=== PATIENT | female | born 1985 | race Hispanic/Latino ===

== ENCOUNTER 2019-03-20 04:10 | Observation (INO) | payer BC ==
[~2019-03-20] VITALS: Ht 160 cm; Wt 56.7 kg
[2019-03-20] MEDS ORDERED: ONDANSETRON HCL INJ 2MG/ML 2ML 2 MG/ML VIAL IV STA (04:31)
[2019-03-20] MEDS ORDERED: FAMOTIDINE 20 MG/2 ML VIAL IV STA (04:31)
[2019-03-20] MEDS ORDERED: DICYCLOMINE HCL 20 MG/2 ML VIAL IM ONE (04:45)
[2019-03-20] MEDS ORDERED: SODIUM CHLORIDE 0.9% 1000ML 1,000 ML IV ONE ×2 (04:45→05:45)
[2019-03-20 04:50] LABS: BASOPHILS % 0.5 % (0.0-1.0); EOSINOPHILS # (AUTO) 0.2 (0.0-0.4); EOSINOPHILS % 2.3 % (0.0-6.0); HEMATOCRIT 37.9 % (34.2-44.1); HEMOGLOBIN 13.2 g/dL (12.0-16.0); LYMPHOCYTES # (AUTO) 2.6 (1.0-3.2); LYMPHOCYTES % 39.4 % (18.0-39.1); MEAN CORPUSCULAR HEMOGLOBIN 31.5 pg (28-32); MEAN CORPUSCULAR HGB CONC 34.8 g/dL (31-35); MEAN CORPUSCULAR VOLUME 90.5 fL (81-99); MONOCYTES # (AUTO) 0.6 (0.2-0.8); MONOCYTES % 9.1 % (4.4-11.3); NEUTROPHILS # (AUTO) 3.2 (2.1-6.9); NEUTROPHILS % 48.5 % (38.7-80.0); PLATELET COUNT 317 x10e3/uL (140-360); RED BLOOD COUNT 4.19 x10e6/uL (3.6-5.1); RED CELL DISTRIBUTION WIDTH 13.8 % (11.7-14.4)
[2019-03-20 05:08] LABS: ALANINE AMINOTRANSFERASE 22 IU/L (0-55); ALBUMIN 4.5 g/dL (3.5-5.0); ALBUMIN/GLOBULIN RATIO 1.5 (0.8-2.0); ALKALINE PHOSPHATASE 50 IU/L (40-150); AMYLASE 87 U/L (25-125); ANION GAP 13.3 mmol/L (8-16); BLOOD UREA NITROGEN 12 mg/dL (7-26); BUN/CREATININE RATIO 14 (6-25); CALCIUM 9.5 mg/dL (8.4-10.2); CARBON DIOXIDE 25 mmol/L (22-29); CHLORIDE 106 mmol/L (98-107); CREATININE, SERUM 0.87 mg/dL (0.57-1.11); EST GLOMERULAR FILTRATION RATE > 60 ML/MIN (60-); GLUCOSE 103 mg/dL (74-118); LIPASE 110 U/L (8-78); POTASSIUM 3.3 mmol/L (3.5-5.1); SODIUM 141 mmol/L (136-145)
[2019-03-20 05:10] LABS: BILIRUBIN,URINE NEGATIVE (NEGATIVE); CLARITY,URINE CLEAR (CLEAR); COLOR,URINE YELLOW (YELLOW); KETONES,URINE NEGATIVE (NEGATIVE); LEUKOCYTE ESTERASE ,URINE NEGATIVE (NEGATIVE); NITRITE,URINE NEGATIVE (NEGATIVE); PROTEIN,URINE DIPSTICK TRACE (NEGATIVE); URINE UROBILINOGEN 1 mg/dL (0.2 - 1)
[2019-03-20 05:14] LABS: PREGNANCY TEST, URINE NEGATIVE (NEGATIVE)
[2019-03-20 05:22] LABS: WBC,URINE (MAN) 0-5 /HPF (0-5)
[2019-03-20 05:23] LABS: BACTERIA,URINE RARE /HPF; EPITHELIAL CELLS,URINE FEW /LPF
[2019-03-20] MEDS ORDERED: POTASSIUM CHLORIDE 20 MEQ TAB CR PO STA (05:43)
[2019-03-20] MEDS ORDERED: SODIUM CHLORIDE 0.9% 50ML 50 ML ONE (06:33)
[2019-03-20] MEDS ORDERED: IOPAMIDOL 370 MG/ML 200 ML INFUS..BTL INJ ONE (06:33)
[2019-03-20] MEDS ORDERED: MORPHINE SULFATE INJ 4 MG/ML INJ 1ML IV PRN (07:00)
--- NOTE | 2019-03-20 07:02 | NUR ---
report given to neelam ajcome
--- NOTE | 2019-03-20 07:05 | Diagnostic Imaging Report ---
EXAMINATION: CT of the abdomen and pelvis with contrast. TECHNIQUE: Helical CT images of the abdomen and pelvis were performed from the lung bases to the lesser trochanters after the intravenous administration of 100 cc of Isovue 300 and the oral administration of none. Coronal and sagittal reformatted images were obtained.Dose modulation, iterative reconstruction, and/or weight based adjustment of the mA/kV was utilized to reduce the radiation dose to as low as reasonably achievable. COMPARISON: None. CLINICAL HISTORY:Abdominal pain DISCUSSION: ABDOMEN/PELVIS: LOWER THORAX:Unremarkable. HEPATOBILIARY: No focal hepatic lesions. No intra-or extrahepatic biliary ductal dilation. The gallbladder is normal. SPLEEN: No splenomegaly. PANCREAS: No focal masses or ductal dilatation. ADRENALS: No adrenal nodules. KIDNEYS/URETERS: Punctate left renal calculus approximately 2 mm. PELVIC ORGANS/BLADDER: The bladder is normal. PERITONEUM/RETROPERITONEUM: No free air or fluid. LYMPH NODES: No intra-abdominal, retroperitoneal, pelvic or inguinal lymphadenopathy. VESSELS: The celiac trunk,superior and inferior mesenteric and bilateral renal arteries are patent The portal, superior mesenteric and splenic veins are patent. GI TRACT: No obstruction. Scattered diverticulosis. No inflammatory change. Appendix is normal. BONES AND SOFT TISSUE: No bony destructive lesions. No soft tissue abnormalities. IMPRESSION: No acute CT finding. Signed by: Dr. Good Oneil M.D. on 03/20/2019 7:02 AM
--- NOTE | 2019-03-20 07:09 | NUR ---
recieved report from NELSY Padilla
[2019-03-20] MEDS: SODIUM CHLORIDE 0.9% 1000ML 1,000 ML IV SCH ×4 (07:10→23:57)
--- NOTE | 2019-03-20 07:19 | NUR ---
DR WEBB AT BEDSIDE WITH PT
--- NOTE | 2019-03-20 08:20 | NUR ---
Patient arrived to the floor from the ER in bed. She is awake alert and oriented x3, she is not in any distress. She has no complaints at this time. Oriented her to the call light and the room, explained to use call light for assistance, she verbalized understanding and denies needing anything at this time, call light in reach
[2019-03-20] MEDS: FAMOTIDINE 20 MG/2 ML VIAL IV SCH ×2 (09:00→16:40)
--- NOTE | 2019-03-20 10:52 | Diagnostic Imaging Report ---
EXAM: Right Upper Quadrant Ultrasound INDICATION: Elevated lipase and bilirubin COMPARISON: CT abdomen and pelvis 03/20/2019 TECHNIQUE: Transverse and longitudinal images of the right upper abdomen were obtained. FINDINGS: Liver: Size: 12.6 cm in the right midclavicular line, normal Appearance: Normal echogenicity, smooth contour Mass: No focal masses Gallbladder: Stones/Sludge: None Wall: 0.3 cm Appearance: No pericholecystic fluid or hydrops. Sonographic Shi's Sign: Negative Bile Ducts: Intrahepatic Ducts: No dilatation Extrahepatic Ducts: Common bile duct measures 0.4 cm, no dilatation Pancreas: Visualized portions of the pancreatic head, neck and proximal body are normal. Right Kidney: Size: 10.8 x 4.7 x 5.8 cm Echogenicity: Normal Parenchymal thickness: Normal Collecting system: No hydronephrosis Stones: None Cyst/Mass: None Vessels: Aorta: Visualized portions are normal Inferior Vena Cava: Visualized portions are normal Main Portal Vein: 1.0 cm, normal size with hepatopetal flow. Free Fluid: No ascites or pleural effusion IMPRESSION: Normal right upper quadrant ultrasound. Signed by: Dr. Danilo King M.D. on 03/20/2019 10:49 AM
[2019-03-20 11:09] VITALS: BP 116/71
[2019-03-20] MEDS: ONDANSETRON HCL INJ 2MG/ML 2ML 2 MG/ML VIAL IV PRN (11:32)
--- NOTE | 2019-03-20 13:50 | History and Physical ---
REASON FOR ADMISSION: Abdominal pain, pancreatitis, hyperbilirubinemia, hypokalemia, and dehydration. HISTORY OF PRESENT ILLNESS: The patient is a 33-year-old young lady who stated that she did not sleep for couple of days and then decided to abdominal area with some diarrhea and therefore presented to the emergency room where she was noticed to have some mild evidence of dehydration and elevated lipase. Most likely, consistent with mild pancreatitis and hypokalemia so she has been admitted for further evaluation and treatment. PAST MEDICAL HISTORY: Unremarkable. MEDICATIONS: None. ALLERGIES: NONE. SOCIAL HISTORY: Nonsmoker. Occasional drinker. FAMILY HISTORY: Hypertension. PHYSICAL EXAMINATION: VITAL SIGNS: Temperature 98.6, pulse 74, blood pressure 126/74, and sats 98% on room air. GENERAL: She is in no apparent distress, lying in bed. NECK: Supple. CARDIOVASCULAR: Regular rate and rhythm. LUNGS: Clear to auscultation bilaterally. ABDOMEN: Soft. Good bowel sounds. Slightly tender in the mid epigastric area with no peritoneal signs. EXTREMITIES: No clubbing or cyanosis. NEUROLOGIC: Nonfocal. ASSESSMENT AND PLAN: 1. Pancreatitis. We will continue with current care and get a CT scan. Continue with IV fluids and pain medicines. 2. Hypokalemia. We will replace. 3. Dehydration. Continue with IV fluids. 4. Hyperbilirubinemia. We will check a CT scan and also consult GI. Please see hospital chart for full details. MD BRIONNA Smalls/NOBLE /[id number]
[2019-03-20 16:00] VITALS: BP 99/50
--- NOTE | 2019-03-20 19:04 | NUR ---
PATIENT IN BED ALERT AND ORIENTED X3, NO RESPIRATORY DISTRESS OBSERVED. SKIN INTEGRITY INTACT, NO EDEMA NOTED TO THE EXTREMITIES AND PATIENT DENIES ABDOMINAL PAIN AT THIS TIME. CALL LIGHT WITHIN EASY REACH, FAMILY MEMBERS VISITING WITH THE PATIENT, SHE'S INSTRUCTED TO CALL FOR ASSISTANCE NEEDED.
[2019-03-20 20:00] VITALS: BP 87/52
--- NOTE | 2019-03-20 20:01 | NUR ---
BLOOD PRESSURE 87/52, HEART RATE 48. PATIENT CONDITION STABLE WITHOUT DISTRESS, SHE DENIES LIGHTHEADEDNESS BUT HAVE SOME DIZZINESS. SHE'S RECEIVING IV FLUID AT 200ML/HR, INSTRUCTED TO CALL FOR ASSISTANCE UPON GETTING OUT OF THE BED DUE TO THE LOW BLOOD PRESSURE AND HEART RATE. WILL CONTINUE TO CLOSELY MONITOR.
[2019-03-20 20:20] VITALS: BP 87/52
--- NOTE | 2019-03-20 22:15 | NUR ---
PATIENT IS ASLEEP WITHOUT DISTRESS, SHE'S EASY TO AROUSE. NO PAIN VOICED, CALL LIGHT WITHIN EASY REACH.
[2019-03-21] VITALS: BP 95/52
--- NOTE | 2019-03-21 01:25 | NUR ---
PATIENT IS SOUNDLY ASLEEP, SHE'S EASY TO AROUSE. NO DISTRESS OBSERVED, SHE DENIES ABDOMINAL PAIN.
[2019-03-21 05:12] LABS: BASOPHILS % 0.6 % (0.0-1.0); EOSINOPHILS # (AUTO) 0.1 (0.0-0.4); EOSINOPHILS % 2.6 % (0.0-6.0); HEMATOCRIT 31.3 % (34.2-44.1); HEMOGLOBIN 10.7 g/dL (12.0-16.0); LYMPHOCYTES # (AUTO) 2.8 (1.0-3.2); LYMPHOCYTES % 51.4 % (18.0-39.1); MEAN CORPUSCULAR HEMOGLOBIN 31.4 pg (28-32); MEAN CORPUSCULAR HGB CONC 34.2 g/dL (31-35); MEAN CORPUSCULAR VOLUME 91.8 fL (81-99); MONOCYTES # (AUTO) 0.4 (0.2-0.8); MONOCYTES % 6.7 % (4.4-11.3); NEUTROPHILS # (AUTO) 2.1 (2.1-6.9); NEUTROPHILS % 38.5 % (38.7-80.0); PLATELET COUNT 243 x10e3/uL (140-360); RED BLOOD COUNT 3.41 x10e6/uL (3.6-5.1); RED CELL DISTRIBUTION WIDTH 14.2 % (11.7-14.4)
[2019-03-21] MEDS: ONDANSETRON HCL INJ 2MG/ML 2ML 2 MG/ML VIAL IV PRN (05:20)
[2019-03-21] MEDS: SODIUM CHLORIDE 0.9% 1000ML 1,000 ML IV SCH (05:20)
--- NOTE | 2019-03-21 05:23 | NUR ---
PATIENT C/O NAUSEA AND HEADACHE. BLOOD PRESSURE 93/50, THE PRESSURE ASSESSED MANUALLY WITH READING OF 103/60. MEDICATED WITH ZOFRAN ORDERED, WILL NOTIFY ATTENDING PHYSICIAN REGARDING MEDICATION FOR HEADACHE.
[2019-03-21] MEDS ORDERED: ACETAMINOPHEN 325 MG TAB PO PRN (05:30)
[2019-03-21 05:33] LABS: ALANINE AMINOTRANSFERASE 14 IU/L (0-55); ALBUMIN 3.1 g/dL (3.5-5.0); ALBUMIN/GLOBULIN RATIO 1.7 (0.8-2.0); ALKALINE PHOSPHATASE 31 IU/L (40-150); AMYLASE 56 U/L (25-125); ANION GAP 8.6 mmol/L (8-16); BLOOD UREA NITROGEN < 5 mg/dL (7-26); CALCIUM 7.9 mg/dL (8.4-10.2); CARBON DIOXIDE 20 mmol/L (22-29); CHLORIDE 113 mmol/L (98-107); CREATININE, SERUM 0.76 mg/dL (0.57-1.11); EST GLOMERULAR FILTRATION RATE > 60 ML/MIN (60-); GLUCOSE 91 mg/dL (74-118); LIPASE 51 U/L (8-78); POTASSIUM 3.6 mmol/L (3.5-5.1); SODIUM 138 mmol/L (136-145)
[2019-03-21 05:34] VITALS: BP 93/50
[2019-03-21 05:38] LABS: BUN/CREATININE RATIO 7 (6-25)
--- NOTE | 2019-03-21 06:29 | NUR ---
PATIENT STATES NO RELIEF FROM HEADACHE AND THAT SHE TAKES EXCEDRIN AT HOME FOR HER HEADACHE. DR WEBB ON THE UNIT TO SEE THE PATIENT, HE'S MADE AWARE OF THE PATIENT TAKING EXCEDRIN AT HOME, NEW ORDER RECEIVED TO STOP THE TYLENOL AND ADMINISTER EXCEDRIN NEEDED.
[2019-03-21] MEDS ORDERED: ACETAMINOPHEN/ASPIRIN/CAFFEINE 1 EA TAB PO PRN (06:30)
[2019-03-21 07:51] VITALS: BP 101/56
[2019-03-21 08:10] VITALS: BP 101/56
[2019-03-21] MEDS: FAMOTIDINE 20 MG/2 ML VIAL IV SCH (08:26)
--- NOTE | 2019-03-21 09:00 | NUR ---
aware patient tolerated breakfast. Denies abdominal pain. See orders
--- NOTE | 2019-03-21 09:15 | NUR ---
Left AC IV discontinued. No signs of infiltration noted. 2x2 gauze and tape placed. Accompanied to personal car by PCT. Refused wheelchair. AAOX4 to time, person, place, situation. Respirations even and unlabored. Denies pain. Discharge instructions and all personal belongings taken with patient. No rx available at this time.
--- NOTE | 2019-03-21 09:34 | Discharge Summary ---
DISCHARGE DIAGNOSES: 1. Gastritis. 2. Pancreatitis. 3. Hyperbilirubinemia. 4. Anemia. HISTORY OF PRESENT ILLNESS AND HOSPITAL COURSE: See hospital chart for full details. The patient is a 33-year-old lady, presented with acute onset of abdominal pain, nausea, vomiting, diarrhea after drinking some without eating. Laboratory data showed a mild anemia and mild total bilirubin, normal liver function tests and slightly elevated amylase. CT scan was unremarkable. Abdominal ultrasound was unremarkable. She was brought in, placed on IV fluids and Pepcid. By the next morning, the patient was tolerating a full diet with no further nausea, vomiting, diarrhea or abdominal pain. Abdominal exam was unremarkable. The patient felt great, wanted to go home. She will follow up with her primary care physician as an outpatient. She is being discharged home on some Zegerid daily for 2 weeks for possible gastritis as well. She is also to follow up with her primary care physician for followup on her laboratory data. Please see hospital chart for full details. MD BRIONNA Smalls/NOBLE /[id number]
== END 2019-03-21 09:23 | disposition home or self-care (01) ==
LOC: ER 04:10 → ERHOLD 06:59 → MED/SURG2 08:39
PROVIDERS: ADMIT Internal Medicine; ATTEND Internal Medicine
DX: K85.20 Alcohol induced acute pancreatitis without necrosis or infection (principal); E86.0 Dehydration; E87.6 Hypokalemia; E80.6 Other disorders of bilirubin metabolism; D64.9 Anemia, unspecified; K29.70 Gastritis, unspecified, without bleeding
CPT/HCPCS: 36415 ×2; 74177; 76705; 80053 ×2; 81001; 81025; 82150 ×2; 83690 ×2; 85025 ×2; 96360; 96361; 96374; 96376; 99284; G0378 ×2; J2405 ×2; J7030 ×2; Q9967; J2270